=== PATIENT | female | born 1960 | race Caucasian/White ===

== ENCOUNTER 2016-11-20 22:12 | Emergency (ER) | payer OTHER ==
--- NOTE | 2016-11-20 23:36 | DIAGNOSTIC IMAGING REPORT ---
PROCEDURE: CT HEAD WITHOUT CONTRAST INDICATION: MENTAL STATUS CHANGE TECHNIQUE: Noncontrast axial images with sagittal and coronal reformations. COMPARISON: None. FINDINGS: Normal sulci and ventricular system. Minor white matter chronic ischemic changes. No evidence of acute intracranial process. Minor left maxillary sinus disease. Mastoids are clear. IMPRESSION: 1. No acute intracranial abnormality 2. Minor white matter chronic ischemic changes 3. Findings discussed with Dr. Fletcher at 11:34 p.m., [facility] Time
--- NOTE | 2016-11-20 23:52 | DIAGNOSTIC IMAGING REPORT ---
PROCEDURE: XR CHEST 1 VIEW INDICATION: ALTERED MS TECHNIQUE: Portable AP view 11:03 p.m. COMPARISON: Chest x-ray 10/12/2012 FINDINGS: Poor inspiration with minor bibasilar atelectasis. Heart and mediastinum are normal. Thorax is normal. IMPRESSION: 1. Poor inspiration with minor bibasilar atelectasis.
--- NOTE | 2016-11-21 01:08 | ED ORDER SUMMARY ---
..... Patient: JANE CALERO OrderSheet [facility] VisitID: [id number] [address] [place] [address] 55y, F Registration Date/Time: 11/20/2016 ORDER SHEET Weight: 58.9 kg (stated) Allergies: Penicillins GENERAL ORDERS: Bank Vault Custodian (Continuous) (22:31 11/20/2016 TBowen R.N. per protocol) (22:32 TBowen R.N.) CBC w Diff Urgent (22:31 11/20/2016 TBowen R.N. per protocol) (22:42 AMcQuoid ER Tech1) CMP Urgent (22:31 11/20/2016 TBowen R.N. per protocol) (22:42 AMcQuoid ER Tech1) UA-Culture if indicated Urgent (22:31 11/20/2016 TBowen R.N. per protocol) (22:32 TBowen R.N.) Pulse oximeter (22:31 11/20/2016 TBowen R.N. per protocol) (22:32 TBowen R.N.) Urine Drug Screen Urgent (22:32 11/20/2016 TBowen R.N. per protocol) (22:32 TBowen R.N.) EKG - ER Stat (22:38 11/20/2016 NHouse ER Tech1 verbal order read back to Erica VERDE) (22:38 NHouse ER Tech1) Ethyl Alcohol Urgent (22:49 11/20/2016 AMcQuoid ER Tech1 per protocol) (22:57 CBradburn R.N.) (Ack 23:01 AMcQuoid ER Tech1) Chest 1V Urgent (22:52 11/20/2016 Erica VERDE) (Ack 23:01 AMcQuoid ER Tech1) (23:07 CBradburn R.N.) Bank Vault Custodian (Continuous) (22:53 11/20/2016 Erica VERDE) (22:57 CBradburn R.N.) (Ack 23:01 AMcQuoid ER Tech1) CT Head wo Cont Urgent (22:53 11/20/2016 Erica VERDE) (Ack 23:01 AMcQuoid ER Tech1) (23:07 CBradburn R.N.) Amylase Urgent (22:53 11/20/2016 Erica VERDE) (22:56 EHassan R.N.) Lipase Urgent (22:53 11/20/2016 Erica VERDE) (22:56 Briannan R.N.) CPK Urgent (22:53 11/20/2016 Erica VERDE) (22:56 Erik R.N.) Troponin-I Urgent (22:53 11/20/2016 Erica VERDE) (22:56 Erik R.N.) EKG - ER Stat (22:53 11/20/2016 Erica VERDE) (22:53 Erica VERDE) (Cancelled: Physician Order22:53 Erica VERDE) (Cancelled: Duplicate Order22:53 NHouse ER Tech1) Pulse oximeter (22:53 11/20/2016 Erica VERDE) (22:57 CBradburn R.N.) (Ack 23:01 AMcQuoid ER Tech1) Oxygen (2 L/min) (NC) (22:53 11/20/2016 Erica VERDE) (Ack 23:01 AMcQuoid ER Tech1) (1:33 CBradburn R.N.) Ammonia Level Urgent (23:36 11/20/2016 Erica VERDE) (Ack 23:40 AMcQuoid ER Tech1) (23:52 AMcQuoid ER Tech1) Acetaminophen Level Urgent (00:24 11/21/2016 Erica VERDE) (0:26 CBradburn R.N.) (0:26 NHouse ER Tech1) Salicylate Level Urgent (00:24 11/21/2016 Erica VERDE) (0:26 CBradburn R.N.) (0:26 NHouse ER Tech1) MEDICATION ORDERS: IV FLUIDS: IV NS : initial bolus 1000 mL (1000 mL/hr), then 125 mL/hr for 4h (NOW); Urgent (22:54 11/20/2016 Erica VERDE) (Ack 23:07 CBradburn R.N.) (23:38 CBradburn R.N.) ORDER SHEET NOTES: [Electronically signed by Judith Adler R.N. (01:37 11/21/2016)] [Electronically signed by Amilcar Fletcher MD (10:01 11/21/2016)] [Electronically locked/signed by Judith Adler R.N. (01:37 11/21/2016)]
--- NOTE | 2016-11-21 01:08 | ED CLINICAL REPORT ---
Clinical Report - Physicians/Mid Levels [facility] [address] [place] [address] 11/20/2016 22:14 Patient: JANE CALERO Time Seen: 22:30. Arrived- By private vehicle. Historian- patient and family. HISTORY OF PRESENT ILLNESS Chief Complaint: DECREASED MENTAL STATUS. The patient is described as having decreased responsiveness. This started today and is now gone. It was abrupt in onset and has been constant. The patient has had weakness. Usually is alert and oriented X3. (Her family is concerned. They state that she has been more tired lately because of her cough and congestion. She also acknowledges that she has used methamphetamines in the recent past. She has felt tired after the effects of the drug wore off). REVIEW OF SYSTEMS No calf pain, chest pain, difficulty breathing, pedal edema or palpitations. No abdominal pain, constipation, diarrhea, nausea or vomiting. No urinary problems. She has had a cough. All systems otherwise negative, except as recorded above. PAST HISTORY Problems: Aneurysm, Cerebral. CVA - Cerebrovascular Accident. Lifestyle / Substance Problems. Meningitis. Back Pain. Additional Surgeries: Appendectomy. Hysterectomy. Medications: Unable to Obtain. Allergies: Penicillins. SOCIAL HISTORY Current every day heavy tobacco smoker (cigarette)- less than 1 pack per day. No alcohol use or drug use. FAMILY HISTORY Denies family medical history. ADDITIONAL NOTES The nursing notes have been reviewed. PHYSICAL EXAM Vital Signs: 11/20/2016 22:11 BP: 100/74. HR: 99. RR: 16. O2 saturation: 97%. Temp: 98 F. Pain level now: 0/10. Have been reviewed. Appearance: Alert. Head: Head atraumatic. ENT: Airway intact. Moist mucous membranes. Pharynx normal. Neck: Normal inspection. Neck supple. No meningeal signs or carotid bruit. CVS: Normal heart rate and rhythm. Heart sounds normal. Respiratory: No respiratory distress. Decreased air movement. (rattle over large airways that clears with cough). Abdomen: Soft and nontender. No organomegaly. Skin: Skin warm and dry. Normal skin color. Normal skin turgor. Extremities: Extremities exhibit normal ROM. No calf tenderness. No lower extremity edema. Neuro: Alert. Speech normal. Mild left-sided facial weakness (she and her family report that this is her baseline her prior CVA). LABS, X-RAYS, AND EKG EKG: Rate: 86. Decreased QRS voltage. Prior EKG unavailable. The study has been independently viewed by me. Chest X-ray: (IMPRESSION: 1. Poor inspiration with minor bibasilar atelectasis.). The X-rays were interpreted by the radiologist and contemporaneously by me. CT Head: (IMPRESSION: 1. No acute intracranial abnormality 2. Minor white matter chronic ischemic changes). The study was interpreted contemporaneously by me and discussed with the radiologist. Laboratory Tests: Salicylate Level: (SEUN: 11/21/2016 00:24) ( [facility] [place] Final results Test Result Flag Units (Reference) SALICYLATE 6.4 mg/dL (2.8-20) UA-Culture if indicated: (SEUN: 11/20/2016 22:35) ( [facility] [place] 11/20/2016 22:49) Final results Test Result Flag Units (Reference) URINE COLOR YELLOW URINE APPEARANCE CLEAR URINE GLUCOSE NEGATIVE (NEGATIVE) URINE BILIRUBIN NEGATIVE (NEGATIVE) URINE KETONE NEGATIVE (NEGATIVE) URINE SPECIFIC GRAVITY <= 1.005 L (1.010-1.030) URINE PH 6.0 (5.0-8.0) URINE PROTEIN NEGATIVE (NEGATIVE) URINE UROBILINOGEN 0.2 EU/dL (0.2-1.0) URINE NITRITE NEGATIVE (NEGATIVE) URINE BLOOD TRACE-LYSED (NEGATIVE) URINE LEUK ESTERASE NEGATIVE (NEGATIVE) URINE RBC 1-3 rbc/hpf (0-1) TRANSITIONAL EPITHELIAL CELLS 0-1/HPF URINE WBC 0-1 wbc/hpf (0-1) URINE EPITHELIAL CELLS 0-1 EPI/hpf (0-5) URINE BACTERIA TRACE (<1+) (NONE SEEN) URINE COMMENT CULT NOT INDICATED URINE CULTURES ARE SET-UP BASED ON THE FOLLOWING CRITERIA:POSITIVE NITRITEPOSITIVE LEUKOCYTE ESTERASEGREATER THAN 10 WHITE BLOOD CELLSMODERATE (2+) OR GREATER BACTERIA CBC w Diff: (SEUN: 11/20/2016 22:35) ( [facility] 11/20/2016 22:44) Final results Test Result Flag Units (Reference) WHITE BLOOD COUNT 7.9 K/uL (4.5-11.5) RED BLOOD COUNT 4.71 M/uL (4.00-5.20) HEMOGLOBIN 14.8 gm/dL (12.0-16.0) HEMATOCRIT 43.2 % (36.0-46.0) MEAN CELL VOLUME 92 fL (80-100) MEAN CORPUSCULAR HGB 31 pg (26-34) MEAN CORPUSCULAR HGB CONC 34 g/dL (31-37) RED CELL DISTRIBUTION WIDTH 13.9 % (11.6-14.8) PLATELET COUNT 267 K/uL (150-400) NEUTROPHIL % 48.5 L % (50-75) LYMPH % 42.4 H % (25-40) MONO % 6.8 % (3-14) EOSINOPHIL % 1.3 % (0-4) BASOPHIL % 1.0 % (0-2) Ammonia Level: (SEUN: 11/20/2016 23:48) ( [facility] 11/21/2016 00:14) Final results Test Result Flag Units (Reference) AMMONIA 14 umol/L (11-32) Lipase: (SEUN: 11/20/2016 22:35) ( [facility] 11/20/2016 23:19) Final results Test Result Flag Units (Reference) LIPASE 181 U/L (73-393) AMYLASE 62 U/L (25-115) CPK 26 U/L (24-260) TROPONIN I 0.07 ng/mL (0.00-1.5) TROPONIN REFERENCE RANGE:<0.1 NEGATIVE0.1-1.5 INDETERMINANT>1.5 POSITIVE Ethyl Alcohol: (SEUN: 11/20/2016 22:35) ( [facility] 11/20/2016 23:07) Final results Test Result Flag Units (Reference) ETHYL ALCOHOL <3 L mg/dL (3-10) Urine Drug Screen: (SEUN: 11/20/2016 22:35) ( MsgRcvd 11/20/2016 23:03) Final results Test Result Flag Units (Reference) AMPHETAMINE/METHAMPHETAMINE POSITIVE H (NEGATIVE) BARBITURATE NEGATIVE (NEGATIVE) BENZODIAZEPINE NEGATIVE (NEGATIVE) CANNABINOID NEGATIVE (NEGATIVE) COCAINE NEGATIVE (NEGATIVE) ECSTASY NEGATIVE (NEGATIVE) METHADONE NEGATIVE (NEGATIVE) OPIATE NEGATIVE (NEGATIVE) The urine drug screen is a qualitative screening test fordrug overdose and abuse. All screen results should beconsidered as presumptive.Drugs screened for are as follows:BenzodiazepinesCocaineAmphetamines/MetamphetaminesTHC (Tetrahydrocannabinol)OpiatesBarbituratesEcstasyMethadonePositive results are unconfirmed. For confirmation, notifythe lab for the specimen to be sent to the reference lab.All confirmations must be performed by a differentmethodology.The ingestion of natural herbal and plant productscontaining Ephedra/Ephedra metabolites can produce in urineone or more substances capable of cross reacting withamphetamine/methamphetamine immunoassays. These testsprovide a preliminary result only. A more specificalternative chemical method must be used to obtain aconfirmed analytical result. CMP: (SEUN: 11/20/2016 22:35) ( MsgRcvd 11/20/2016 23:07) Final results Test Result Flag Units (Reference) GLUCOSE 100 mg/dL (70-110) BUN 11 mg/dL (7-18) CREATININE 0.8 mg/dL (0.6-1.3) Estimated GFR >60 mL/min Estimated GFR- >60 mL/min Note: Persistent reduction over 3 months in eGFR<60 mL/min/1.73 m2 defines CKD. Patients with eGFR values>=60 mL/min/1.73 m2 may also have CKD if evidence ofpersistent proteinuria. Additional information may be foundat www.kidney.org. SODIUM 142 mmol/L (136-145) POTASSIUM 3.4 L mmol/L (3.5-5.1) CHLORIDE 106 mmol/L (98-107) CARBON DIOXIDE 23 mmol/L (21-32) CALCIUM 8.9 mg/dL (8.5-10.1) TOTAL PROTEIN 7.6 g/dL (6.4-8.2) ALBUMIN 3.5 g/dL (3.3-5.0) BILIRUBIN, TOTAL 0.3 mg/dL (0.0-1.0) ALKALINE PHOSPHATASE 124 H U/L (46-116) AST (SGOT) 17 U/L (15-37) ALT (SGPT) 22 U/L (12-78) . PROGRESS AND PROCEDURES Course of Care: Patient is stable. Patient/family counseled. Old medical records reviewed. Disposition: Discharged. Condition: stable. CLINICAL IMPRESSION Acute bronchitis. Substance abuse- tobacco, methamphetamines. INSTRUCTIONS Do not smoke- benefits of smoking cessation discussed (>3 -10 minutes). Seek medical help to quit smoking. Warnings: Further evaluation is necessary. GENERAL WARNINGS: Return or contact your physician immediately if your condition worsens or changes unexpectedly, if not improving as expected, or if other problems arise. Prescription Medications: Zithromax 250 mg tablets: take 2 orally today, followed by 1 daily for the next 4 days. No refills. Substitution is permissible. Understanding of the discharge instructions verbalized by patient and family. Follow-up with: [facility], Family Practice, , [address] [place] [address] Follow up in five days. Call for the next available appointment. (Electronically signed by Amilcar Fletcher MD 11/21/2016 10:01)
--- NOTE | 2016-11-21 01:08 | ED NURSING NOTES ---
Clinical Report - Nurses [facility] [place] [address] 11/20/2016 22:14 Patient: JANE CALERO TRIAGE Triage time 22:20. Acuity: LEVEL 2. Chief Complaint: ALTERED MENTAL STATUS. --22:33 Judith Adler R.N. 22:11 11/20/16. BP: 100/74 taken on the left arm, while lying. HR: 99 (regular, normal rate and strong). RR: 16. O2 saturation: 97% on room air. Temp: 98 F (oral). Pain level now: 0/10. --22:33 Judith Adler R.N. Weight: 58.9 kg stated. Height/Length: 62 inches Per Patient. BMI: 23.8. --22:32 Judith Adler R.N. Medications Unable to Obtain. --22:25 Judith Adler R.N. Allergies Penicillins. --22:25 Judith Adler R.N. History Arrived by private vehicle. Historian: family. Accompanied by family. Primary physician (unknown). This started unknown. ( son stopped by to see pt and found pt altered, unsure of cause, pt reports taking pills unsure what time,). She has had new onset of weakness (unsure). SOCIAL HX: Heavy tobacco smoker (cigarette)- 1 pack per day. History of occasional drug use: methamphetamines, marijuana. No alcohol use. SELF HARM ASSESSMENT: A self harm assessment was performed. The patient answered "no" to the question "Have you recently felt down, depressed, or hopeless?", "Have you noticed less interest or pleasure in doing things?", "Do you have thoughts of harming or killing yourself?", "Are you here because you tried to hurt yourself?", "Have you ever tried to hurt yourself before today?", "Have you recently had thoughts about harming or killing others?" and "Do you have any dangerous items in your possession?". --22:33 Judith Adler R.N. PROBLEMS: Lifestyle / Substance Problems. Meningitis. Back Pain. --22:26 Judith Adler R.N. Aneurysm, Cerebral. CVA - Cerebrovascular Accident. --22:30 Judith Adler R.N. ADDITIONAL SURGERIES: Appendectomy. Hysterectomy. --22:26 Judith Adler R.N. Interventions ID band on patient. --22:33 Judith Adler R.N. PHYSICAL ASSESSMENT To room via wheelchair. GENERAL / NEURO / PSYCH: Appears in distress. Decreased awareness (drowsy and lethargic). The patient is disoriented to place, time and situation. Patient's speech is whispered. She has had constant, generalized weakness. Pupillary exam: Right pupil 3mm, round and sluggishly reactive. Left pupil: 3mm, round and sluggishly reactive. RESPIRATORY: Moderate respiratory distress. Decreased breath sounds in the bases bilaterally. CVS: Capillary refill less than 2 seconds. GI / : Abdomen soft and nontender. Bowel sounds within normal limits. SKIN: Skin is warm and dry. Normal skin turgor. --22:42 Judith Adler R.N. NURSING PROGRESS NOTES Call light placed in reach. Side rails up x 2. Bed placed in lowest position. Brakes of bed on. --22:42 Judith Adler R.N. 22:42 11/20/16. BP: 96/67 taken while lying. HR: 90 (regular and normal rate). RR: 16. O2 saturation: 97% on room air. Pain level now: 0/10. --22:42 Judith Adler R.N. Patient ready for evaluation- chart flagged. --22:42 Judith Adler R.N. EKG time: (2238). EKG was ordered, performed by a tech and shown to the ED physician. --22:43 Chandni Marquez, ER Tech1 The patient reports no complaints. Overall patient status is the same- she states feels the same. ( son at bedside, spoke to family where pt lives pt sick for 4 days with cough and congestion, weakness, and confusion off and on.). GENERAL / NEURO / PSYCH: Decreased awareness disoriented to time, place, person and situation; lethargic. RESPIRATORY: Decreased breath sounds bilaterally. Patient transported to radiology and CT by stretcher with tech. (23:08). --23:10 Judith Adler R.N. 23:00 11/20/2016 Site #1 started via IV in the right hand with an 20g angiocath, with aseptic technique and good blood return; one attempt. Saline lock flushed with 10 mL saline. --23:38 Judith Adler R.N. 23:38 11/20/2016 Started bag #1 1000 mL IV Fluids IV NS (Saline); bolus of 1000 mL wide open then over 1 hour(s) via site #1. Allergies verified and confirmed 5 rights. IV patency established. IV site checked: no pain, redness, or swelling. IV flushed thoroughly pre- and post-medication administration. --23:38 Judith Adler R.N. 00:11 11/21/16. BP: 96/65 taken on the left arm, while lying. HR: 81 (regular). RR: 18 (regular and unlabored). O2 saturation: 99% on room air. Temp: deferred. Pain level now: 0/10. --00:14 Judith Adler R.N. Overall patient status is improved. ( pt A&Ox4 at this time, conversing appropriately, still drowsy, states "I am very sick, I do not feel good". States I have just been sick and all I want to do is sleep). GENERAL / NEURO / PSYCH: Patient is calm and cooperative. Affect appears normal. Oriented X 4. RESPIRATORY: No respiratory distress. SKIN: Skin is warm and dry. Two patient identifiers checked. Call light placed in reach. Side rails up x 2. Bed placed in lowest position. Brakes of bed on. --00:14 Judith Adler R.N. ( at bedside for eval). --01:05 Judith Adler R.N. 01:33 11/21/2016 IV Fluids IV NS Discontinued: bag #1 completed upon discharge. Total amount infused: 1000 mL. IV patency established. IV site checked: no pain, redness, or swelling. IV flushed thoroughly. --:33 Judith Adler R.N. 01:34 11/21/2016 Site #1 removed upon discharge. Catheter intact. Manual pressure and bandage applied. --01:34 Judith Adler R.N. DISPOSITION / DISCHARGE Condition at departure: improved and stable. No learning barriers present. Discharge instructions provided and reviewed with the patient and family. Reviewed medication(s) side effects, precautions, dosing and course information. Prescription(s) given to the patient. Patient and family verbalized understanding. Written instructions provided in Luxembourgish. The patient was discharged home and accompanied by family. She left the Emergency Department in a wheelchair and via private vehicle. Family member driving. --01:36 Judith Adler R.N. 01:34 11/21/16. BP: 96/66 taken on the left arm, while lying. HR: 86 (regular and normal rate). RR: 18 (regular and unlabored). O2 saturation: 99% on room air. Temp: 97.9 F (oral). Pain level now: 0/10. --01:36 Judith Adler R.N. Departure time: 01:36. --01:37 Judith Adler R.N. Locked/Released at 11/21/2016 1:37 by Judith Adler R.N.
--- NOTE | 2016-11-21 01:08 | ED ORDER SUMMARY ---
..... Patient: JANE CALERO OrderSheet [facility] VisitID: [id number] [address] [place] [address] 55y, F Registration Date/Time: 11/20/2016 ORDER SHEET Weight: 58.9 kg (stated) Allergies: Penicillins GENERAL ORDERS: Oil Well Cable Tool Operator (Continuous) (22:31 11/20/2016 TBowen R.N. per protocol) (22:32 TBowen R.N.) CBC w Diff Urgent (22:31 11/20/2016 TBowen R.N. per protocol) (22:42 AMcQuoid ER Tech1) CMP Urgent (22:31 11/20/2016 TBowen R.N. per protocol) (22:42 AMcQuoid ER Tech1) UA-Culture if indicated Urgent (22:31 11/20/2016 TBowen R.N. per protocol) (22:32 TBowen R.N.) Pulse oximeter (22:31 11/20/2016 TBowen R.N. per protocol) (22:32 TBowen R.N.) Urine Drug Screen Urgent (22:32 11/20/2016 TBowen R.N. per protocol) (22:32 TBowen R.N.) EKG - ER Stat (22:38 11/20/2016 NHouse ER Tech1 verbal order read back to Erica VERDE) (22:38 NHouse ER Tech1) Ethyl Alcohol Urgent (22:49 11/20/2016 AMcQuoid ER Tech1 per protocol) (22:57 CBradburn R.N.) (Ack 23:01 AMcQuoid ER Tech1) Chest 1V Urgent (22:52 11/20/2016 Erica VERDE) (Ack 23:01 AMcQuoid ER Tech1) (23:07 CBradburn R.N.) Oil Well Cable Tool Operator (Continuous) (22:53 11/20/2016 Erica VERDE) (22:57 CBradburn R.N.) (Ack 23:01 AMcQuoid ER Tech1) CT Head wo Cont Urgent (22:53 11/20/2016 Erica VERDE) (Ack 23:01 AMcQuoid ER Tech1) (23:07 CBradburn R.N.) Amylase Urgent (22:53 11/20/2016 Erica VERDE) (22:56 EHassan R.N.) Lipase Urgent (22:53 11/20/2016 Erica VERDE) (22:56 Briannan R.N.) CPK Urgent (22:53 11/20/2016 Erica VERDE) (22:56 Erik R.N.) Troponin-I Urgent (22:53 11/20/2016 Erica VERDE) (22:56 Erik R.N.) EKG - ER Stat (22:53 11/20/2016 Erica VERDE) (22:53 Erica VERDE) (Cancelled: Physician Order22:53 Erica VERDE) (Cancelled: Duplicate Order22:53 NHouse ER Tech1) Pulse oximeter (22:53 11/20/2016 Erica VERDE) (22:57 CBradburn R.N.) (Ack 23:01 AMcQuoid ER Tech1) Oxygen (2 L/min) (NC) (22:53 11/20/2016 Erica VERDE) (Ack 23:01 AMcQuoid ER Tech1) (1:33 CBradburn R.N.) Ammonia Level Urgent (23:36 11/20/2016 Erica EVRDE) (Ack 23:40 AMcQuoid ER Tech1) (23:52 AMcQuoid ER Tech1) Acetaminophen Level Urgent (00:24 11/21/2016 Erica VERDE) (0:26 CBradburn R.N.) (0:26 NHouse ER Tech1) Salicylate Level Urgent (00:24 11/21/2016 Erica VERDE) (0:26 CBradburn R.N.) (0:26 NHouse ER Tech1) MEDICATION ORDERS: IV FLUIDS: IV NS : initial bolus 1000 mL (1000 mL/hr), then 125 mL/hr for 4h (NOW); Urgent (22:54 11/20/2016 Erica VERDE) (Ack 23:07 CBradburn R.N.) (23:38 CBradburn R.N.) ORDER SHEET NOTES: [Electronically signed by Judith Adler R.N. (01:37 11/21/2016)] [Electronically signed by Amilcar Fletcher MD (10:01 11/21/2016)] [Electronically locked/signed by Judith Adler R.N. (01:37 11/21/2016)]
--- NOTE | 2016-11-21 01:08 | ED CLINICAL REPORT ---
Clinical Report - Physicians/Mid Levels Located Within [facility] [address] [place] [address] 11/20/2016 22:14 Patient: JANE CALERO Time Seen: 22:30. Arrived- By private vehicle. Historian- patient and family. HISTORY OF PRESENT ILLNESS Chief Complaint: DECREASED MENTAL STATUS. The patient is described as having decreased responsiveness. This started today and is now gone. It was abrupt in onset and has been constant. The patient has had weakness. Usually is alert and oriented X3. (Her family is concerned. They state that she has been more tired lately because of her cough and congestion. She also acknowledges that she has used methamphetamines in the recent past. She has felt tired after the effects of the drug wore off). REVIEW OF SYSTEMS No calf pain, chest pain, difficulty breathing, pedal edema or palpitations. No abdominal pain, constipation, diarrhea, nausea or vomiting. No urinary problems. She has had a cough. All systems otherwise negative, except as recorded above. PAST HISTORY Problems: Aneurysm, Cerebral. CVA - Cerebrovascular Accident. Lifestyle / Substance Problems. Meningitis. Back Pain. Additional Surgeries: Appendectomy. Hysterectomy. Medications: Unable to Obtain. Allergies: Penicillins. SOCIAL HISTORY Current every day heavy tobacco smoker (cigarette)- less than 1 pack per day. No alcohol use or drug use. FAMILY HISTORY Denies family medical history. ADDITIONAL NOTES The nursing notes have been reviewed. PHYSICAL EXAM Vital Signs: 11/20/2016 22:11 BP: 100/74. HR: 99. RR: 16. O2 saturation: 97%. Temp: 98 F. Pain level now: 0/10. Have been reviewed. Appearance: Alert. Head: Head atraumatic. ENT: Airway intact. Moist mucous membranes. Pharynx normal. Neck: Normal inspection. Neck supple. No meningeal signs or carotid bruit. CVS: Normal heart rate and rhythm. Heart sounds normal. Respiratory: No respiratory distress. Decreased air movement. (rattle over large airways that clears with cough). Abdomen: Soft and nontender. No organomegaly. Skin: Skin warm and dry. Normal skin color. Normal skin turgor. Extremities: Extremities exhibit normal ROM. No calf tenderness. No lower extremity edema. Neuro: Alert. Speech normal. Mild left-sided facial weakness (she and her family report that this is her baseline her prior CVA). LABS, X-RAYS, AND EKG EKG: Rate: 86. Decreased QRS voltage. Prior EKG unavailable. The study has been independently viewed by me. Chest X-ray: (IMPRESSION: 1. Poor inspiration with minor bibasilar atelectasis.). The X-rays were interpreted by the radiologist and contemporaneously by me. CT Head: (IMPRESSION: 1. No acute intracranial abnormality 2. Minor white matter chronic ischemic changes). The study was interpreted contemporaneously by me and discussed with the radiologist. Laboratory Tests: Salicylate Level: (SEUN: 11/21/2016 00:24) ( [facility] [place] 11/21/2016 00:50) Final results Test Result Flag Units (Reference) SALICYLATE 6.4 mg/dL (2.8-20) UA-Culture if indicated: (SEUN: 11/20/2016 22:35) ( [facility] [place] 11/20/2016 22:49) Final results Test Result Flag Units (Reference) URINE COLOR YELLOW URINE APPEARANCE CLEAR URINE GLUCOSE NEGATIVE (NEGATIVE) URINE BILIRUBIN NEGATIVE (NEGATIVE) URINE KETONE NEGATIVE (NEGATIVE) URINE SPECIFIC GRAVITY <= 1.005 L (1.010-1.030) URINE PH 6.0 (5.0-8.0) URINE PROTEIN NEGATIVE (NEGATIVE) URINE UROBILINOGEN 0.2 EU/dL (0.2-1.0) URINE NITRITE NEGATIVE (NEGATIVE) URINE BLOOD TRACE-LYSED (NEGATIVE) URINE LEUK ESTERASE NEGATIVE (NEGATIVE) URINE RBC 1-3 rbc/hpf (0-1) TRANSITIONAL EPITHELIAL CELLS 0-1/HPF URINE WBC 0-1 wbc/hpf (0-1) URINE EPITHELIAL CELLS 0-1 EPI/hpf (0-5) URINE BACTERIA TRACE (<1+) (NONE SEEN) URINE COMMENT CULT NOT INDICATED URINE CULTURES ARE SET-UP BASED ON THE FOLLOWING CRITERIA:POSITIVE NITRITEPOSITIVE LEUKOCYTE ESTERASEGREATER THAN 10 WHITE BLOOD CELLSMODERATE (2+) OR GREATER BACTERIA CBC w Diff: (SEUN: 11/20/2016 22:35) ( [facility] 11/20/2016 22:44) Final results Test Result Flag Units (Reference) WHITE BLOOD COUNT 7.9 K/uL (4.5-11.5) RED BLOOD COUNT 4.71 M/uL (4.00-5.20) HEMOGLOBIN 14.8 gm/dL (12.0-16.0) HEMATOCRIT 43.2 % (36.0-46.0) MEAN CELL VOLUME 92 fL (80-100) MEAN CORPUSCULAR HGB 31 pg (26-34) MEAN CORPUSCULAR HGB CONC 34 g/dL (31-37) RED CELL DISTRIBUTION WIDTH 13.9 % (11.6-14.8) PLATELET COUNT 267 K/uL (150-400) NEUTROPHIL % 48.5 L % (50-75) LYMPH % 42.4 H % (25-40) MONO % 6.8 % (3-14) EOSINOPHIL % 1.3 % (0-4) BASOPHIL % 1.0 % (0-2) Ammonia Level: (SEUN: 11/20/2016 23:48) ( [facility] 11/21/2016 00:14) Final results Test Result Flag Units (Reference) AMMONIA 14 umol/L (11-32) Lipase: (SEUN: 11/20/2016 22:35) ( [facility] 11/20/2016 23:19) Final results Test Result Flag Units (Reference) LIPASE 181 U/L (73-393) AMYLASE 62 U/L (25-115) CPK 26 U/L (24-260) TROPONIN I 0.07 ng/mL (0.00-1.5) TROPONIN REFERENCE RANGE:<0.1 NEGATIVE0.1-1.5 INDETERMINANT>1.5 POSITIVE Ethyl Alcohol: (SEUN: 11/20/2016 22:35) ( [facility] 11/20/2016 23:07) Final results Test Result Flag Units (Reference) ETHYL ALCOHOL <3 L mg/dL (3-10) Urine Drug Screen: (SEUN: 11/20/2016 22:35) ( MsgRcvd 11/20/2016 23:03) Final results Test Result Flag Units (Reference) AMPHETAMINE/METHAMPHETAMINE POSITIVE H (NEGATIVE) BARBITURATE NEGATIVE (NEGATIVE) BENZODIAZEPINE NEGATIVE (NEGATIVE) CANNABINOID NEGATIVE (NEGATIVE) COCAINE NEGATIVE (NEGATIVE) ECSTASY NEGATIVE (NEGATIVE) METHADONE NEGATIVE (NEGATIVE) OPIATE NEGATIVE (NEGATIVE) The urine drug screen is a qualitative screening test fordrug overdose and abuse. All screen results should beconsidered as presumptive.Drugs screened for are as follows:BenzodiazepinesCocaineAmphetamines/MetamphetaminesTHC (Tetrahydrocannabinol)OpiatesBarbituratesEcstasyMethadonePositive results are unconfirmed. For confirmation, notifythe lab for the specimen to be sent to the reference lab.All confirmations must be performed by a differentmethodology.The ingestion of natural herbal and plant productscontaining Ephedra/Ephedra metabolites can produce in urineone or more substances capable of cross reacting withamphetamine/methamphetamine immunoassays. These testsprovide a preliminary result only. A more specificalternative chemical method must be used to obtain aconfirmed analytical result. CMP: (SEUN: 11/20/2016 22:35) ( MsgRcvd 11/20/2016 23:07) Final results Test Result Flag Units (Reference) GLUCOSE 100 mg/dL (70-110) BUN 11 mg/dL (7-18) CREATININE 0.8 mg/dL (0.6-1.3) Estimated GFR >60 mL/min Estimated GFR- >60 mL/min Note: Persistent reduction over 3 months in eGFR<60 mL/min/1.73 m2 defines CKD. Patients with eGFR values>=60 mL/min/1.73 m2 may also have CKD if evidence ofpersistent proteinuria. Additional information may be foundat www.kidney.org. SODIUM 142 mmol/L (136-145) POTASSIUM 3.4 L mmol/L (3.5-5.1) CHLORIDE 106 mmol/L (98-107) CARBON DIOXIDE 23 mmol/L (21-32) CALCIUM 8.9 mg/dL (8.5-10.1) TOTAL PROTEIN 7.6 g/dL (6.4-8.2) ALBUMIN 3.5 g/dL (3.3-5.0) BILIRUBIN, TOTAL 0.3 mg/dL (0.0-1.0) ALKALINE PHOSPHATASE 124 H U/L (46-116) AST (SGOT) 17 U/L (15-37) ALT (SGPT) 22 U/L (12-78) . PROGRESS AND PROCEDURES Course of Care: Patient is stable. Patient/family counseled. Old medical records reviewed. Disposition: Discharged. Condition: stable. CLINICAL IMPRESSION Acute bronchitis. Substance abuse- tobacco, methamphetamines. INSTRUCTIONS Do not smoke- benefits of smoking cessation discussed (>3 -10 minutes). Seek medical help to quit smoking. Warnings: Further evaluation is necessary. GENERAL WARNINGS: Return or contact your physician immediately if your condition worsens or changes unexpectedly, if not improving as expected, or if other problems arise. Prescription Medications: Zithromax 250 mg tablets: take 2 orally today, followed by 1 daily for the next 4 days. No refills. Substitution is permissible. Understanding of the discharge instructions verbalized by patient and family. Follow-up with: [facility], Family Practice, , [address] [place] [address] Follow up in five days. Call for the next available appointment. (Electronically signed by Amilcar Fletcher MD 11/21/2016 10:01)
--- NOTE | 2016-11-21 10:02 | ED DISCHARGE INSTRUCTIONS ---
Patient: JANE CALERO General Instructions [facility] VisitID: [id number] [address] [place] [address] 55y, F Registration Date/Time: 11/20/2016 Acute bronchitis. Substance abuse- tobacco, methamphetamines. INSTRUCTIONS Do not smoke- benefits of smoking cessation discussed (>3 -10 minutes). Seek medical help to quit smoking. Warnings: Further evaluation is necessary. GENERAL WARNINGS: Return or contact your physician immediately if your condition worsens or changes unexpectedly, if not improving as expected, or if other problems arise. Prescription Medications: Zithromax 250 mg tablets: take 2 orally today, followed by 1 daily for the next 4 days. No refills. Substitution is permissible. Understanding of the discharge instructions verbalized by patient and family. Follow-up with: [facility], [facility], , [address] [place] [address] Follow up in five days. Call for the next available appointment. ADDITIONAL INFORMATION Drug Abuse Use and abuse of such drugs as marijuana, amphetamines (speed, crank), cocaine, heroin or prescription pain medicines (Vicodin, codeine), sedatives and sleeping pills (Valium, Klonopin), PCP, mescaline and LSD may lead to addiction or dependence. Once this occurs, you are at greater risk for any of the following: Craving for the drug and unable to stop using the drug even though you think you want to stop (psychological dependence) Drug withdrawal symptoms if you stop taking the drug (physical dependence) Loss of your job or your family Arrest, conviction and residential sentence for possession of an illegal substance or for driving under the influence of such a substance Accidental injuries to yourself or others while you are under the influence of the drug (in a car or at home). HIV infection (much greater risk if you use IV drugs) Other sexually transmitted diseases (herpes, chlamydia, gonorrhea and others) Severe and fatal infection of the heart valves (if you use IV drugs) Stroke, heart attack, hepatitis B or C, kidney failure from overdose Home Care: Admit you have a drug problem. Ask for help from your family and close friends. Seek professional help. This could be in the form of individual psychotherapy or counseling or an outpatient, inpatient, or residential drug treatment program. Join a self-help group for drug abuse. Avoid friends who abuse drugs themselves or tempt you to continue abusing drugs. Eat a balanced diet and begin a regular exercise program. Follow Up with your doctor or as advised by our staff. Contact one of the resources below for help. National [place] on Alcoholism and Drug Dependence www.ncadd.org 070-330-XYGN Narcotics Anonymous www.na.org 749-960-0175 National Alcohol and Substance Abuse Information Center (for referral to treatment programs) www.addictionSynthelis 387-663-7806 Get Prompt Medical Attention if any of the following occur: Agitation, anxiety, unable to sleep Unintended weight loss (more than 10 to 15 pounds over 3 months) Seizure Chest pain Fever of 100.4F (38C) or higher, or as directed by your healthcare provider Excess drowsiness or inability to be awakened Shortness of breath Slow breathing under 8 breaths per minute Cough with colored sputum Redness, swelling or tenderness at an injection site How To Quit Smoking Smoking is one of the hardest habits to break. About half of all those who have ever smoked have been able to quit, and most of those (about 70%) who still smoke want to quit. Here are some of the best ways to stop smoking. Keep Trying: It takes most smokers about 8 tries before they are finally able to fully quit. So, the more often you try and fail, the better your chance of quitting the next time! So, don't give up! Go Cold [place]: Most ex-smokers quit cold turkey. Trying to cut back gradually doesn't seem to work as well, perhaps because it continues the smoking habit. Also, it is possible to fool yourself by inhaling more while smoking fewer cigarettes. This results in the same amount of nicotine in your body! Get Support: Support programs can make an important difference, especially for the heavy smoker. These groups offer lectures, methods to change your behavior and peer support. Call the free national Quitline for more information. 089-YAHQ-ZQD (540-911-9707). Low-cost or free programs are offered by many hospitals, local chapters of the [place] [employer] (628-399-0760) and the [place] [employer] (637-071-2246). Support at home is important too. Non-smokers can help by offering praise and encouragement. If the smoker fails to quit, encourage them to try again! Ifmi-Fif-Zydapkm Medicines: For those who can't quit on their own, Nicotine Replacement Therapy (NRT) may make quitting much easier. Certain aids such as the nicotine patch, gum and lozenge are available without a prescription. However, it is best to use these under the guidance of your doctor. The skin patch provides a steady supply of nicotine to the body. Nicotine gum and lozenge gives temporary bursts of low levels of nicotine. Both methods take the edge off the craving for cigarettes. WARNING: If you feel symptoms of nicotine overdose, such as nausea, vomiting, dizziness, weakness, or fast heartbeat, stop using these and see your doctor. Prescription Medicines: After evaluating your smoking patterns and prior attempts at quitting, your doctor may offer a prescription medicine such as bupropion (Zyban, Wellbutrin), varenicline (Chantix, Champix), a niocotine inhaler or nasal spray. Each has its unique advantage and side effects which your doctor can review with you. Health Benefits Of Quitting: The benefits of quitting start right away and keep improving the longer you go without smokin minutes: blood pressure and pulse return to normal 8 hours: oxygen levels return to normal 2 days: ability to smell and taste begins to improve as damaged nerves start to regrow 2-3 weeks: circulation and lung function improves 1-9 months: decreased cough, congestion and shortness of breath; less tired 1 year: risk of heart attack decreases by half 5 years: risk of lung cancer decreases by half; risk of stroke becomes the same as a non-smoker For information about how to quit smoking, visit the following links: [employer] [facility] , Clearing the Air, Quit Smoking Today - an online booklet. http://www.smokefree.gov/pubs/clearing_the_air.pdf Smokefree.gov http://smokefree.gov/ QuitNet http://www.quitnet.com/ Bronchitis (Adult: Abx Tx) BRONCHITIS is an infection of the air passages (bronchial tubes). It often occurs during the common cold. Symptoms include cough with mucus (phlegm) and low-grade fever. Bronchitis usually lasts 7-14 days. Mild cases can be treated with simple home remedies. More severe infection is treated with an antibiotic. Home Care: If symptoms are severe, rest at home for the first 2-3 days. When you resume activity, don't let yourself get too tired. Do not smoke. Avoid being exposed to the smoke of others. You may use acetaminophen (Tylenol) or ibuprofen (Motrin, Advil) to control fever or pain, unless another medicine was prescribed for this. [NOTE: If you have chronic liver or kidney disease or ever had a stomach ulcer or GI bleeding, talk with your doctor before using these medicines.] Your appetite may be poor, so a light diet is fine. Avoid dehydration by drinking 6-8 glasses of fluids per day (water, soft, drinks, juices, tea, soup, etc.). Extra fluids will help loosen secretions in the lungs. Artt-zbd-kldwpdy cough medicines that containdextromethorphan(such as Robitussin DM) and decongestants (Actifed or Sudafed) may help relieve cough and congestion. [NOTE: Do not use decongestants if you have high blood pressure.] Finish all antibiotic medicine, even if you are feeling better after only a few days. Follow Up with your doctor or as directed if you dont start to feel better after three days. [NOTE: If you are age 65 or older, or if you have chronic asthma or COPD, we recommend a PNEUMOCOCCAL VACCINATION every five years and a yearly INFLUENZAVACCINATION (FLU-SHOT) every . Ask your doctor about this. If you had an X-ray, a radiologist will review it. You will be notified of any new findings that may affect your care.] Get Prompt Medical Attention if any of the following occur: Fever over 100.4F (38.0C) for more than three days Trouble breathing, wheezing or pain with breathing Coughing up blood or increased amounts of colored sputum Weakness, drowsiness, headache, facial pain, ear pain or a stiff neck How To Quit Smoking Smoking is one of the hardest habits to break. About half of all those who have ever smoked have been able to quit, and most of those (about 70%) who still smoke want to quit. Here are some of the best ways to stop smoking. Keep Trying: It takes most smokers about 8 tries before they are finally able to fully quit. So, the more often you try and fail, the better your chance of quitting the next time! So, don't give up! Go Cold [place]: Most ex-smokers quit cold turkey. Trying to cut back gradually doesn't seem to work as well, perhaps because it continues the smoking habit. Also, it is possible to fool yourself by inhaling more while smoking fewer cigarettes. This results in the same amount of nicotine in your body! Get Support: Support programs can make an important difference, especially for the heavy smoker. These groups offer lectures, methods to change your behavior and peer support. Call the free national Quitline for more information. 425-KAQF-JZN (453-435-9254). Low-cost or free programs are offered by many hospitals, local chapters of the [place] [employer] (690-521-2334) and the [place] [employer] (241-296-3256). Support at home is important too. Non-smokers can help by offering praise and encouragement. If the smoker fails to quit, encourage them to try again! Xrem-Olo-Unehoip Medicines: For those who can't quit on their own, Nicotine Replacement Therapy (NRT) may make quitting much easier. Certain aids such as the nicotine patch, gum and lozenge are available without a prescription. However, it is best to use these under the guidance of your doctor. The skin patch provides a steady supply of nicotine to the body. Nicotine gum and lozenge gives temporary bursts of low levels of nicotine. Both methods take the edge off the craving for cigarettes. WARNING: If you feel symptoms of nicotine overdose, such as nausea, vomiting, dizziness, weakness, or fast heartbeat, stop using these and see your doctor. Prescription Medicines: After evaluating your smoking patterns and prior attempts at quitting, your doctor may offer a prescription medicine such as bupropion (Zyban, Wellbutrin), varenicline (Chantix, Champix), a niocotine inhaler or nasal spray. Each has its unique advantage and side effects which your doctor can review with you. Health Benefits Of Quitting: The benefits of quitting start right away and keep improving the longer you go without smokin minutes: blood pressure and pulse return to normal 8 hours: oxygen levels return to normal 2 days: ability to smell and taste begins to improve as damaged nerves start to regrow 2-3 weeks: circulation and lung function improves 1-9 months: decreased cough, congestion and shortness of breath; less tired 1 year: risk of heart attack decreases by half 5 years: risk of lung cancer decreases by half; risk of stroke becomes the same as a non-smoker For information about how to quit smoking, visit the following links: National [employer] [facility] , Clearing the Air, Quit Smoking Today - an online booklet. http://www.smokefree.gov/pubs/clearing_the_air.pdf Smokefree.gov http://smokefree.gov/ QuitNet http://www.quitnet.com/ Azithromycin Oral tablet What is this medicine? AZITHROMYCIN (az ith kendrick MYE sin) is a macrolide antibiotic. It is used to treat or prevent certain kinds of bacterial infections. It will not work for colds, flu, or other viral infections. How should I use this medicine? Take this medicine by mouth with a full glass of water. Follow the directions on the prescription label. The tablets can be taken with food or on an empty stomach. If the medicine upsets your stomach, take it with food. Take your medicine at regular intervals. Do not take your medicine more often than directed. Take all of your medicine as directed even if you think your are better. Do not skip doses or stop your medicine early. Talk to your flame cutting machine operator helper regarding the use of this medicine in children. Special care may be needed. What side effects may I notice from receiving this medicine? Side effects that you should report to your doctor or health medication care manager as soon as possible: allergic reactions like skin rash, itching or hives, swelling of the face, lips, or tongue confusion, nightmares or hallucinations dark urine difficulty breathing hearing loss irregular heartbeat or chest pain pain or difficulty passing urine redness, blistering, peeling or loosening of the skin, including inside the mouth white patches or sores in the mouth yellowing of the eyes or skin Side effects that usually do not require medical attention (report to your doctor or health medication care manager if they continue or are bothersome): diarrhea dizziness, drowsiness headache stomach upset or vomiting tooth discoloration vaginal irritation What may interact with this medicine? Do not take this medicine with any of the following medications: lincomycin This medicine may also interact with the following medications: amiodarone antacids cyclosporine digoxin magnesium nelfinavir phenytoin warfarin What if I miss a dose? If you miss a dose, take it as soon as you can. If it is almost time for your next dose, take only that dose. Do not take double or extra doses. Where should I keep my medicine? Keep out of the reach of children. Store at room temperature between 15 and 30 degrees C (59 and 86 degrees F). Throw away any unused medicine after the expiration date. What should I tell my health care provider before I take this medicine? They need to know if you have any of these conditions: kidney disease liver disease irregular heartbeat or heart disease an unusual or allergic reaction to azithromycin, erythromycin, other macrolide antibiotics, foods, dyes, or preservatives or trying to get breast-feeding What should I watch for while using this medicine? Tell your doctor or health medication care manager if your symptoms do not improve. Do not treat diarrhea with over the counter products. Contact your doctor if you have diarrhea that lasts more than 2 days or if it is severe and watery. This medicine can make you more sensitive to the sun. Keep out of the sun. If you cannot avoid being in the sun, wear protective clothing and use sunscreen. Do not use sun lamps or tanning beds/booths. You have been given the following additional information: Drug Abuse Smoking Cessation Bronchitis, Antiobiotic Treatment (Adult) Smoking Cessation Azithromycin Oral tablet (Electronically signed by Amilcar Fletcher MD 11/21/2016 10:01)
--- NOTE | 2016-11-21 10:02 | ED MAR SUMMARY ---
..... Medication Administration Record [facility] [address] [place] [address] Patient: JANE CALERO Visit ID: [id number] 55y, F Weight: 58.9 kg Height/Length: 62 in BMI: 23.8 ALLERGIES: Penicillins Start 23:38 11/20/2016 Judith Adler R.N., Stop 01:33 11/21/2016 Judith Adler R.N. Medication Administered: IV NS (SALINE), Dose: IV Fluids over 1 hour(s), Bolus: 1000 mL wide open, Dispensed: 1000 mL bag, Site: #1 right hand. Medication Ordered: IV NS : initial bolus 1000 mL (1000 mL/hr), then 125 mL/hr for 4h (NOW); Urgent.
--- NOTE | 2016-11-21 10:02 | ED MED RECONCILIATION SUMMARY ---
Patient: JANE CALERO Medication Reconciliation Report [facility] VisitID: [id number] [address] [place] [address] 55y, F Registration Date/Time: 11/20/2016 Weight: 58.9 kg Height/Length: 62 in. BMI: 23.8 ALLERGIES: Penicillins The patient's Home Medications are listed below: Unable to obtain. The source(s) of the original Home Medication information: Not obtained. The following Medications were given to the patient in the Emergency Department: IV NS IV Fluids bolus 1000 mL wide open, administered: 11/20/2016 11:38:00 PM The following Medications were prescribed to the patient: Zithromax 250 mg tablets: take 2 orally today, followed by 1 daily for the next 4 days. No refills. Substitution is permissible. -- Amilcar Fletcher MD
--- NOTE | 2016-11-21 10:02 | ED MAR SUMMARY ---
..... Medication Administration Record Located Within [facility] [address] [place] [address] Patient: JANE CALERO Visit ID: [id number] 55y, F Weight: 58.9 kg Height/Length: 62 in BMI: 23.8 ALLERGIES: Penicillins Start 23:38 11/20/2016 Judith Adler R.N., Stop 01:33 11/21/2016 Judith Adler R.N. Medication Administered: IV NS (SALINE), Dose: IV Fluids over 1 hour(s), Bolus: 1000 mL wide open, Dispensed: 1000 mL bag, Site: #1 right hand. Medication Ordered: IV NS : initial bolus 1000 mL (1000 mL/hr), then 125 mL/hr for 4h (NOW); Urgent.
--- NOTE | 2016-11-21 10:02 | ED DISCHARGE INSTRUCTIONS ---
Patient: JANE CALERO General Instructions [facility] VisitID: [id number] [address] [place] [address] 55y, F Registration Date/Time: 11/20/2016 Acute bronchitis. Substance abuse- tobacco, methamphetamines. INSTRUCTIONS Do not smoke- benefits of smoking cessation discussed (>3 -10 minutes). Seek medical help to quit smoking. Warnings: Further evaluation is necessary. GENERAL WARNINGS: Return or contact your physician immediately if your condition worsens or changes unexpectedly, if not improving as expected, or if other problems arise. Prescription Medications: Zithromax 250 mg tablets: take 2 orally today, followed by 1 daily for the next 4 days. No refills. Substitution is permissible. Understanding of the discharge instructions verbalized by patient and family. Follow-up with: [facility], [facility], , [address] [place] [address] Follow up in five days. Call for the next available appointment. ADDITIONAL INFORMATION Drug Abuse Use and abuse of such drugs as marijuana, amphetamines (speed, crank), cocaine, heroin or prescription pain medicines (Vicodin, codeine), sedatives and sleeping pills (Valium, Klonopin), PCP, mescaline and LSD may lead to addiction or dependence. Once this occurs, you are at greater risk for any of the following: Craving for the drug and unable to stop using the drug even though you think you want to stop (psychological dependence) Drug withdrawal symptoms if you stop taking the drug (physical dependence) Loss of your job or your family Arrest, conviction and long term sentence for possession of an illegal substance or for driving under the influence of such a substance Accidental injuries to yourself or others while you are under the influence of the drug (in a car or at home). HIV infection (much greater risk if you use IV drugs) Other sexually transmitted diseases (herpes, chlamydia, gonorrhea and others) Severe and fatal infection of the heart valves (if you use IV drugs) Stroke, heart attack, hepatitis B or C, kidney failure from overdose Home Care: Admit you have a drug problem. Ask for help from your family and close friends. Seek professional help. This could be in the form of individual psychotherapy or counseling or an outpatient, inpatient, or residential drug treatment program. Join a self-help group for drug abuse. Avoid friends who abuse drugs themselves or tempt you to continue abusing drugs. Eat a balanced diet and begin a regular exercise program. Follow Up with your doctor or as advised by our staff. Contact one of the resources below for help. National [employer] on Alcoholism and Drug Dependence www.ncadd.org 763-922-GUDR Narcotics Anonymous www.na.org 155-784-5607 National Alcohol and Substance Abuse Information Center (for referral to treatment programs) www.add[employer]osis [employer] 836-416-0291 Get Prompt Medical Attention if any of the following occur: Agitation, anxiety, unable to sleep Unintended weight loss (more than 10 to 15 pounds over 3 months) Seizure Chest pain Fever of 100.4F (38C) or higher, or as directed by your healthcare provider Excess drowsiness or inability to be awakened Shortness of breath Slow breathing under 8 breaths per minute Cough with colored sputum Redness, swelling or tenderness at an injection site How To Quit Smoking Smoking is one of the hardest habits to break. About half of all those who have ever smoked have been able to quit, and most of those (about 70%) who still smoke want to quit. Here are some of the best ways to stop smoking. Keep Trying: It takes most smokers about 8 tries before they are finally able to fully quit. So, the more often you try and fail, the better your chance of quitting the next time! So, don't give up! Go Cold [place]: Most ex-smokers quit cold turkey. Trying to cut back gradually doesn't seem to work as well, perhaps because it continues the smoking habit. Also, it is possible to fool yourself by inhaling more while smoking fewer cigarettes. This results in the same amount of nicotine in your body! Get Support: Support programs can make an important difference, especially for the heavy smoker. These groups offer lectures, methods to change your behavior and peer support. Call the free national Quitline for more information. 802-QCNG-NTE (333-904-4834). Low-cost or free programs are offered by many hospitals, local chapters of the [place] [employer] (494-439-6997) and the [place] [employer] (330-787-0472). Support at home is important too. Non-smokers can help by offering praise and encouragement. If the smoker fails to quit, encourage them to try again! Gpyc-Sko-Tucqbsb Medicines: For those who can't quit on their own, Nicotine Replacement Therapy (NRT) may make quitting much easier. Certain aids such as the nicotine patch, gum and lozenge are available without a prescription. However, it is best to use these under the guidance of your doctor. The skin patch provides a steady supply of nicotine to the body. Nicotine gum and lozenge gives temporary bursts of low levels of nicotine. Both methods take the edge off the craving for cigarettes. WARNING: If you feel symptoms of nicotine overdose, such as nausea, vomiting, dizziness, weakness, or fast heartbeat, stop using these and see your doctor. Prescription Medicines: After evaluating your smoking patterns and prior attempts at quitting, your doctor may offer a prescription medicine such as bupropion (Zyban, Wellbutrin), varenicline (Chantix, Champix), a niocotine inhaler or nasal spray. Each has its unique advantage and side effects which your doctor can review with you. Health Benefits Of Quitting: The benefits of quitting start right away and keep improving the longer you go without smokin minutes: blood pressure and pulse return to normal 8 hours: oxygen levels return to normal 2 days: ability to smell and taste begins to improve as damaged nerves start to regrow 2-3 weeks: circulation and lung function improves 1-9 months: decreased cough, congestion and shortness of breath; less tired 1 year: risk of heart attack decreases by half 5 years: risk of lung cancer decreases by half; risk of stroke becomes the same as a non-smoker For information about how to quit smoking, visit the following links: National Cancer [place] , Clearing the Air, Quit Smoking Today - an online booklet. http://www.smokefree.gov/pubs/clearing_the_air.pdf Smokefree.gov http://smokefree.gov/ QuitNet http://www.quitnet.com/ Bronchitis (Adult: Abx Tx) BRONCHITIS is an infection of the air passages (bronchial tubes). It often occurs during the common cold. Symptoms include cough with mucus (phlegm) and low-grade fever. Bronchitis usually lasts 7-14 days. Mild cases can be treated with simple home remedies. More severe infection is treated with an antibiotic. Home Care: If symptoms are severe, rest at home for the first 2-3 days. When you resume activity, don't let yourself get too tired. Do not smoke. Avoid being exposed to the smoke of others. You may use acetaminophen (Tylenol) or ibuprofen (Motrin, Advil) to control fever or pain, unless another medicine was prescribed for this. [NOTE: If you have chronic liver or kidney disease or ever had a stomach ulcer or GI bleeding, talk with your doctor before using these medicines.] Your appetite may be poor, so a light diet is fine. Avoid dehydration by drinking 6-8 glasses of fluids per day (water, soft, drinks, juices, tea, soup, etc.). Extra fluids will help loosen secretions in the lungs. Xjia-npm-oxslbtg cough medicines that containdextromethorphan(such as Robitussin DM) and decongestants (Actifed or Sudafed) may help relieve cough and congestion. [NOTE: Do not use decongestants if you have high blood pressure.] Finish all antibiotic medicine, even if you are feeling better after only a few days. Follow Up with your doctor or as directed if you dont start to feel better after three days. [NOTE: If you are age 65 or older, or if you have chronic asthma or COPD, we recommend a PNEUMOCOCCAL VACCINATION every five years and a yearly INFLUENZAVACCINATION (FLU-SHOT) every . Ask your doctor about this. If you had an X-ray, a radiologist will review it. You will be notified of any new findings that may affect your care.] Get Prompt Medical Attention if any of the following occur: Fever over 100.4F (38.0C) for more than three days Trouble breathing, wheezing or pain with breathing Coughing up blood or increased amounts of colored sputum Weakness, drowsiness, headache, facial pain, ear pain or a stiff neck How To Quit Smoking Smoking is one of the hardest habits to break. About half of all those who have ever smoked have been able to quit, and most of those (about 70%) who still smoke want to quit. Here are some of the best ways to stop smoking. Keep Trying: It takes most smokers about 8 tries before they are finally able to fully quit. So, the more often you try and fail, the better your chance of quitting the next time! So, don't give up! Go Cold [place]: Most ex-smokers quit cold turkey. Trying to cut back gradually doesn't seem to work as well, perhaps because it continues the smoking habit. Also, it is possible to fool yourself by inhaling more while smoking fewer cigarettes. This results in the same amount of nicotine in your body! Get Support: Support programs can make an important difference, especially for the heavy smoker. These groups offer lectures, methods to change your behavior and peer support. Call the free national Quitline for more information. 545-SPLJ-PJL (665-550-5412). Low-cost or free programs are offered by many hospitals, local chapters of the [place] [employer] (179-744-2354) and the [place] [employer] (084-443-0764). Support at home is important too. Non-smokers can help by offering praise and encouragement. If the smoker fails to quit, encourage them to try again! Fuxr-Doj-Vyuapvq Medicines: For those who can't quit on their own, Nicotine Replacement Therapy (NRT) may make quitting much easier. Certain aids such as the nicotine patch, gum and lozenge are available without a prescription. However, it is best to use these under the guidance of your doctor. The skin patch provides a steady supply of nicotine to the body. Nicotine gum and lozenge gives temporary bursts of low levels of nicotine. Both methods take the edge off the craving for cigarettes. WARNING: If you feel symptoms of nicotine overdose, such as nausea, vomiting, dizziness, weakness, or fast heartbeat, stop using these and see your doctor. Prescription Medicines: After evaluating your smoking patterns and prior attempts at quitting, your doctor may offer a prescription medicine such as bupropion (Zyban, Wellbutrin), varenicline (Chantix, Champix), a niocotine inhaler or nasal spray. Each has its unique advantage and side effects which your doctor can review with you. Health Benefits Of Quitting: The benefits of quitting start right away and keep improving the longer you go without smokin minutes: blood pressure and pulse return to normal 8 hours: oxygen levels return to normal 2 days: ability to smell and taste begins to improve as damaged nerves start to regrow 2-3 weeks: circulation and lung function improves 1-9 months: decreased cough, congestion and shortness of breath; less tired 1 year: risk of heart attack decreases by half 5 years: risk of lung cancer decreases by half; risk of stroke becomes the same as a non-smoker For information about how to quit smoking, visit the following links: National Cancer [place] , Clearing the Air, Quit Smoking Today - an online booklet. http://www.smokefree.gov/pubs/clearing_the_air.pdf Smokefree.gov http://smokefree.gov/ QuitNet http://www.quitnet.com/ Azithromycin Oral tablet What is this medicine? AZITHROMYCIN (az ith kendrick MYE sin) is a macrolide antibiotic. It is used to treat or prevent certain kinds of bacterial infections. It will not work for colds, flu, or other viral infections. How should I use this medicine? Take this medicine by mouth with a full glass of water. Follow the directions on the prescription label. The tablets can be taken with food or on an empty stomach. If the medicine upsets your stomach, take it with food. Take your medicine at regular intervals. Do not take your medicine more often than directed. Take all of your medicine as directed even if you think your are better. Do not skip doses or stop your medicine early. Talk to your steamblaster regarding the use of this medicine in children. Special care may be needed. What side effects may I notice from receiving this medicine? Side effects that you should report to your doctor or health career and transition teacher as soon as possible: allergic reactions like skin rash, itching or hives, swelling of the face, lips, or tongue confusion, nightmares or hallucinations dark urine difficulty breathing hearing loss irregular heartbeat or chest pain pain or difficulty passing urine redness, blistering, peeling or loosening of the skin, including inside the mouth white patches or sores in the mouth yellowing of the eyes or skin Side effects that usually do not require medical attention (report to your doctor or health career and transition teacher if they continue or are bothersome): diarrhea dizziness, drowsiness headache stomach upset or vomiting tooth discoloration vaginal irritation What may interact with this medicine? Do not take this medicine with any of the following medications: lincomycin This medicine may also interact with the following medications: amiodarone antacids cyclosporine digoxin magnesium nelfinavir phenytoin warfarin What if I miss a dose? If you miss a dose, take it as soon as you can. If it is almost time for your next dose, take only that dose. Do not take double or extra doses. Where should I keep my medicine? Keep out of the reach of children. Store at room temperature between 15 and 30 degrees C (59 and 86 degrees F). Throw away any unused medicine after the expiration date. What should I tell my health care provider before I take this medicine? They need to know if you have any of these conditions: kidney disease liver disease irregular heartbeat or heart disease an unusual or allergic reaction to azithromycin, erythromycin, other macrolide antibiotics, foods, dyes, or preservatives or trying to get breast-feeding What should I watch for while using this medicine? Tell your doctor or health career and transition teacher if your symptoms do not improve. Do not treat diarrhea with over the counter products. Contact your doctor if you have diarrhea that lasts more than 2 days or if it is severe and watery. This medicine can make you more sensitive to the sun. Keep out of the sun. If you cannot avoid being in the sun, wear protective clothing and use sunscreen. Do not use sun lamps or tanning beds/booths. You have been given the following additional information: Drug Abuse Smoking Cessation Bronchitis, Antiobiotic Treatment (Adult) Smoking Cessation Azithromycin Oral tablet (Electronically signed by Amilcar Fletcher MD 11/21/2016 10:01)
--- NOTE | 2016-11-21 10:02 | ED MED RECONCILIATION SUMMARY ---
Patient: JANE CALERO Medication Reconciliation Report [facility] VisitID: [id number] [address] [place] [address] 55y, F Registration Date/Time: 11/20/2016 Weight: 58.9 kg Height/Length: 62 in. BMI: 23.8 ALLERGIES: Penicillins The patient's Home Medications are listed below: Unable to obtain. The source(s) of the original Home Medication information: Not obtained. The following Medications were given to the patient in the Emergency Department: IV NS IV Fluids bolus 1000 mL wide open, administered: 11/20/2016 11:38:00 PM The following Medications were prescribed to the patient: Zithromax 250 mg tablets: take 2 orally today, followed by 1 daily for the next 4 days. No refills. Substitution is permissible. -- Amilcar Fletcher MD
== END 2016-11-21 01:36 | disposition home or self-care (01) ==
LOC: ED SRH 22:12
DX: J20.9 Acute bronchitis, unspecified (principal); F15.10 Other stimulant abuse, uncomplicated; F17.210 Nicotine dependence, cigarettes, uncomplicated; Z88.0 Allergy status to penicillin
CPT/HCPCS: 90004; 90100; 90616; 91588; 92010; 92235; 92530; 92610; 92760; 92761; 92762; 92763; 92764; 92765; 92766; 92767; 92780; 95059; 97000